=== PATIENT | female | born 1990 | race American Indian/Alaskan Native ===

== ENCOUNTER 2017-07-06 21:51 | Inpatient (IN) | payer MEDICAID, OTHER ==
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
[2017-07-06 19:56] LABS: Hematocrit 27.5 % (30.3-42.9); Hemoglobin 8.8 gm/dl (10.1-14.3); Mean Corpuscular HGB Conc 32 % (30-34); Mean Corpuscular Hemoglobin 24 pg (28-32); Mean Corpuscular Volume 74 fl (79-97); Platelet Count 251 K/mm3 (140-440); Red Cell Distribution Width 16.3 % (13.2-15.2); White Blood Count 11.9 K/mm3 (4.5-11.0)
[2017-07-06 20:10] LABS: INR 0.97 (0.87-1.13)
[2017-07-06 20:11] LABS: Partial Thromboplastin Time 29.2 Sec. (24.2-36.6)
[~2017-07-06 21:51] MED LIST: ALUM-MAG HYDROX-SIMETH 200-200-20MG/5ML PO PRN; AMBIEN PO PRN; BENADRYL PO PRN; COLACE PO PRN; GUAIFENESIN DM SYRUP PO PRN; LACTATED RINGERS 500 ML IV ONE; MILK OF MAGNESIA PO PRN; MYLICON PO PRN; SENOKOT S PO PRN; SODIUM CHLORIDE FLUSH SYRINGE 10 ML IV PRN; SUDAFED PO PRN; TYLENOL PO PRN; ZOFRAN IV PRN
[2017-07-06 21:57] LABS: Bilirubin,Urine NEG (Negative); Blood,Urine NEG (Negative); Ketones,Urine NEG (Negative); Leukocyte Esterase,Urine NEG (Negative); Mucus,Urine FEW /HPF; Nitrite,Urine NEG (Negative); Protein,Urine <15 mg/dL mg/dL (Negative); Urobilinogen,Urine < 2.0 mg/dL (<2.0); WBC,Urine < 1.0 /HPF (0.0-6.0)
[2017-07-06] MEDS ORDERED: LACTATED RINGERS 1,000 ML IV SCH (22:00)
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
[2017-07-07] MEDS ORDERED: LACTATED RINGERS 1,000 ML ONE ×2 (00:34→09:33)
[2017-07-07] MEDS ORDERED: PRENATAL VITAMIN PO SCH (10:00)
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
[2017-07-07 16:21] VITALS: BP 121/74
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
== END 2017-07-07 20:00 | disposition home or self-care (01) | DRG 781 ==
LOC: ED 21:51 → EDSTATUS 22:00 → LD 07-07 00:02 → OBSVTOIN 07-07 08:24
PROVIDERS: ADMIT Obstetrics & Gynecology; ATTEND Obstetrics & Gynecology
DX: O9A.213 Injury, poisoning and certain other consequences of external causes complicating pregnancy, third trimester (principal); O99.013 Anemia complicating pregnancy, third trimester; D64.9 Anemia, unspecified; O99.343 Other mental disorders complicating pregnancy, third trimester; F32.9 Major depressive disorder, single episode, unspecified; Z3A.37 37 weeks gestation of pregnancy; Z87.891 Personal history of nicotine dependence; V49.9XXA Car occupant (driver) (passenger) injured in unspecified traffic accident, initial encounter; Y93.89 Activity, other specified; Y92.89 Other specified places as the place of occurrence of the external cause; Y99.8 Other external cause status
CPT/HCPCS: 36415; 59025; 76805; 81001; 85027; 85610; 85730; 86850; 86900; 86901; 96360; 96361; G0379; J7120